=== PATIENT | female | born 1965 | race Caucasian/White ===

== ENCOUNTER 2022-09-23 08:30 | Inpatient (IN) | payer BC ==
[~2022-09-23] VITALS: Ht 167.6 cm; Wt 88.5 kg
[2022-09-23] MEDS ORDERED: LIDOCAINE 2%, 20 ML MDV ONE (11:43)
[2022-09-23] MEDS ORDERED: KETOROLAC TROMETHAMINE 30 MG VIAL ONE (11:43)
[2022-09-23] MEDS ORDERED: DEXTROSE 50% JECT 50 ML DISP.SYRIN ONE (11:43)
[2022-09-23] MEDS ORDERED: MIDAZOLAM HCL 2 MG/2 ML VIAL (VERSED) ONE (11:43)
[2022-09-23] MEDS ORDERED: fentaNYL CITRATE/PF 100 MCG/2 ML AMP ONE (11:43)
[2022-09-23] MEDS ORDERED: DESFLURANE 15 MIN GAS INH ONE (11:43)
[2022-09-23] MEDS ORDERED: CLINDAMYCIN 2% VAGINAL CREAM VG ONE (11:43)
[2022-09-23] MEDS ORDERED: PROPOFOL 200MG/ 20ML VIAL (DIPRIVAN) IV ONE (11:43)
[2022-09-23] MEDS ORDERED: DEXAMETHASONE SOD PHOSPHATE 4 MG/ML VIAL ONE (11:43)
[2022-09-23] MEDS ORDERED: ROCURONIUM BROMIDE 10 MG/ML (ZEMURON) ONE (11:43)
[2022-09-23] MEDS ORDERED: LIDOCAINE/EPI MPF 1%1:200000 30 ML VIAL ONE (11:43)
[2022-09-23] MEDS ORDERED: SUGAMMADEX SODIUM 200 MG/2 ML VIAL IV ONE (11:43)
[2022-09-23] MEDS ORDERED: NS IRRIG SOLN 1000 ML IR ONE (11:43)
[2022-09-23] MEDS ORDERED: ceFAZolin SODIUM 2 GM VIAL ONE (11:43)
[2022-09-23] MEDS ORDERED: LR 1,000 ML IV.SOLN IV ONE (11:43)
[2022-09-23] MEDS ORDERED: FUROSEMIDE 40 MG/4 ML VIAL ONE (11:43)
[2022-09-23] MEDS ORDERED: PSYL0.4C2 PO (12:09)
[2022-09-23] MEDS ORDERED: OLME5TAB29 PO (12:09)
[2022-09-23] MEDS ORDERED: VITD400 PO (12:09)
[2022-09-23] MEDS ORDERED: ASCO500T20 PO (12:09)
[2022-09-23] MEDS ORDERED: MEPERIDINE HCL/PF 25 MG/ML DISP.SYRIN IVP PRN (12:30)
[2022-09-23] MEDS ORDERED: METOCLOPRAMIDE HCL 10 MG/2 ML VIAL IVP PRN (12:30)
[2022-09-23] MEDS ORDERED: hydrALAZINE HCL 20 MG/ML VIAL IVP PRN (12:30)
[2022-09-23] MEDS ORDERED: HYDROmorphone 1 MG/ML INJ. CARTRIDGE IVP PRN ×2 (12:30)
[2022-09-23] MEDS ORDERED: LABETALOL 100 MG/ 20ML VIAL IVP PRN (12:30)
[2022-09-23] MEDS ORDERED: ACETAMINOPHEN I.V. 1000 MG 100 ML IV ONE (13:07)
[2022-09-23] MEDS ORDERED: OXYCODONE/ACETAMINOPHEN 5-325 TABLET PO PRN (13:30)
[2022-09-23] MEDS ORDERED: ONDANSETRON HCL 4 MG/2 ML VIAL IVP PRN (13:30)
[2022-09-23] MEDS ORDERED: NALOXONE HCL 0.4 MG/ML AMP (NARCAN) IVP PRN (13:30)
[2022-09-23] MEDS ORDERED: HYDROcodone/ACETAMIN 5-325 MG TAB (NORCO/ VICODIN) PO PRN (13:30)
[2022-09-23 14:01] VITALS: BP_SYST 119
[2022-09-23] MEDS ORDERED: HYDROCORTISONE 2.5%, 30 GM TOPICAL CREAM TP PRN (15:30)
[2022-09-23] MEDS: OXYCODONE/ACETAMINOPHEN 5-325 TABLET PO PRN ×2 (16:11→21:16)
[2022-09-23] MEDS: DOCUSATE SODIUM 100 MG CAPSULE PO PRN (16:15)
[2022-09-23] MEDS: LR 1,000 ML IV SCH (17:16)
[2022-09-23] MEDS ORDERED: KETOROLAC TROMETHAMINE 30 MG VIAL IM SCH (18:00)
[2022-09-23] MEDS: ceFAZolin SODIUM 1 GM in D5W 50 ML IV SCH (18:02)
[2022-09-23] MEDS: KETOROLAC TROMETHAMINE 30 MG VIAL IVP SCH (18:03)
[2022-09-23] MEDS ORDERED: WITCH HAZEL LEAF 1 MED.PAD MED.PAD TP PRN (20:30)
[2022-09-24] MEDS: KETOROLAC TROMETHAMINE 30 MG VIAL IVP SCH ×3 (00:14→12:00)
[2022-09-24] MEDS: ceFAZolin SODIUM 1 GM in D5W 50 ML IV SCH ×2 (01:59→10:01)
[2022-09-24] MEDS: LR 1,000 ML IV SCH (06:08)
[2022-09-24] MEDS: OXYCODONE/ACETAMINOPHEN 5-325 TABLET PO PRN (08:01)
[2022-09-24] MEDS: DOCUSATE SODIUM 100 MG CAPSULE PO PRN (08:01)
== END 2022-09-24 15:55 | disposition home or self-care (01) | DRG 748 ==
LOC: SMU 08:52 → SPU 14:44
PROVIDERS: ADMIT Specialist; ATTEND Specialist
PROC: 06BY0ZC Excision of Hemorrhoidal Plexus, Open Approach (ICD-10-PCS; 2022-09-23)
PROC: 0JQC0ZZ Repair Pelvic Region Subcutaneous Tissue and Fascia, Open Approach (ICD-10-PCS; 2022-09-23)
PROC: 0TSC0ZZ Reposition Bladder Neck, Open Approach (ICD-10-PCS; 2022-09-23)
PROC: 0UJH8ZZ Inspection of Vagina and Cul-de-sac, Via Natural or Artificial Opening Endoscopic (ICD-10-PCS; 2022-09-23)
PROC: 0JQC0ZZ Repair Pelvic Region Subcutaneous Tissue and Fascia, Open Approach (ICD-10-PCS; principal; 2022-09-23 11:53)
DX: N81.6 Rectocele (principal); N81.11 Cystocele, midline; N36.8 Other specified disorders of urethra; N39.3 Stress incontinence (female) (male); Z79.899 Other long term (current) drug therapy; K64.4 Residual hemorrhoidal skin tags
CPT/HCPCS: 87081; 88304; 88305; C1771; J0131; J0690; J1100; J1885; J1940; J2001; J2704; J3010; J3465; J3490; J7060; J7120